=== PATIENT | female | born 1950 | race Caucasian/White ===

== ENCOUNTER 2017-05-04 11:40 | Day surgery (SDC) | payer MEDICARE, OTHER ==
[~2017-05-04] VITALS: Ht 152.4 cm; Wt 65.8 kg
--- NOTE | ~2017-05-04 | OP ---
Record Of Operation [facility] [address] [place]. [address] NAME: FERNANDO KNIGHT : 48 STATUS : [facility]#: [id number] AGE: 66 ADM/REG DATE : 05/04/17 MR#: [id number] REPORT SERV DATE: 05/04/17 DICTATED BY: STEPHANE SHAY DATE: 05/04/17 REPORT STATUS : Draft TRANSCRIBED BY: ELIZABETH DATE: 05/04/17 DATE OF PROCEDURE: 05/04/2017 PROCEDURE: L1 kyphoplasty using fluoroscopic guidance. DIAGNOSES: 1. Osteoporosis. 2. L1 compression fracture. 3. Severe lumbalgia, secondary to the above. PREPROCEDURAL ANTIBIOTICS: None. ANESTHESIA: General. INTERIM HISTORY: Noncontributory. COMPLICATIONS: None. ESTIMATED BLOOD LOSS: Approximately 20 mL. FLUIDS: Through the procedure given by [facility] was approximately 800 mL. CONSENT: Informed consent was given and signed. Informed consent document was obtained. Full description of the procedure was provided including benefits as well as possible complications. OPERATIVE PROCEDURE: The patient was brought to the operating room and placed under general anesthesia with endotracheal intubation and then rolled onto chest rolls in a comfortable prone position. All pressure points were padded. The operative field was prepped with alcohol, followed by ChloraPrep and Ioban and draped in sterile fashion. Local anesthesia both superficial and deep was provided by local infiltration of a total of approximately 15 mL of 50:50 mixture of 0.5% Marcaine with epinephrine and 1% lidocaine. Anesthesia to the level of the pedicles was given using a 22-gauge 3.5 inch spinal needle, and this also allowed for correct corroboration of the L1 level between AP and lateral fluoroscopy. Two C-arms were used throughout the procedure in biplanar fashion, and radiographs were made. Attention was focused on the L1 vertebrae. Using a 15 blade scalpel, a small skin rent was made just lateral to the right pedicle under AP view. A size 2 (Express) trocar was then mounted to the right pedicle just past the posterior margin of the vertebral body using multiple radiographic views under AP and lateral projections. The Kyphon biopsy device was then cored under continuous live fluoroscopy until reaching the junction of the anterior one-third and posterior two-thirds of the vertebral body under lateral projection. The biopsy device was near the midline on the AP view. Attention was then turned to the left side at the same level, and the same procedure was repeated. Two Kyphon balloon tamps were then placed through the introducers. The inflatable bone tamps were filled with contrast to a pressure of approximately 200 psi, and radiographs revealed excellent Record Of Operation [address] [place]. [address] NAME: FERNANDO KNIGHT : 48 STATUS : [facility] PAT#: [id number] AGE: 66 ADM/REG DATE : 05/04/17 MR#: [id number] REPORT SERV DATE: 05/04/17 DICTATED BY: STEPHANE SHAY DATE: 05/04/17 REPORT STATUS : Draft TRANSCRIBED BY: ELIZABETH DATE: 05/04/17 intraosseous cavitation on AP and lateral projections. The balloon tamps were then deflated and removed and a total of approximately 6 mL of polymethylmethacrylate (PMMA) was pushed through the introducers after being mixed and given time to harden. The patient tolerated this well, and radiographs revealed excellent intraosseous cement interdigitation without any evidence of extravasation. All needles, introducers, and other percutaneous equipment were removed. The skin nicks were then cleansed, covered, and dressed. The patient tolerated the procedure well. There were no complications. She was taken to the recovery area in good condition and will be provided with postprocedural instructions. She will also be provided with contact information and instructed to call regarding any concerning symptoms or questions. LUIZ/ELIZABETH Stephane Shay M.D. / [id number] CC: Stephane Shay M.D.
[~2017-05-04 11:40] MED LIST: DIL2TAB PO; NEUR600 PO; PAX20 PO; WELL100 PO
[2017-05-04 12:30] LABS: BASOPHILS 0.3 %; BASOPHILS ABSOLUTE 0.02 10/3/uL (0.0-0.16); EOSINOPHILS 2.2 %; EOSINOPHILS ABSOLUTE 0.14 10/3/uL (0.0-0.53); HEMOGLOBIN 12.8 g/dL (12.0-16.0); LYMPHOCYTES 26.3 %; LYMPHOCYTES ABSOLUTE 1.69 10/3/uL (0.67-4.30); MANUAL DIFF NO %; MEAN CORPUS HGB CONC 33.7 g/dL (32.0-36.0); MEAN CORPUSCULAR HEMOGLOB 31.1 pg (26.0-34.0); MEAN CORPUSCULAR VOLUME 92.2 fL (80-100); MEAN PLATELET VOLUME 9.1 fL (9.2-13.0); MONOCYTES 5.4 %; MONOCYTES ABSOLUTE 0.35 10/3/uL (0.21-1.20); NEUTROPHILS 65.8 %; NEUTROPHILS ABSOLUTE 4.23 10/3/uL (2.02-8.40); PLATELET COUNT 271 10/3/uL (150-400); RBC DISTRIBUTION WIDTH 12.7 % (12.0-16.0); RED CELL COUNT 4.12 10/6/uL (4.0-5.6); WHITE BLOOD CELLS 6.4 10/3/uL (4.5-10.5)
[2017-05-04 12:38] LABS: INTERNATIONAL NORMAL RATI 1.1 UNITS (-); PARTIAL THROMBO TIME 29.2 SEC (22.5-37.2); PROTIME (NOT ORD) 13.6 SEC (12.0-14.5)
[2017-05-04 12:42] LABS: BUN (BLOOD UREA NITROGEN) 9 MG/DL (6-23); CALCIUM, SERUM 9.2 MG/DL (8.5-10.4); CHLORIDE, SERUM 104 MMOL/L (96-112); CO2 (CARBON DIOXIDE) 29 MMOL/L (24-34); CREATININE 0.81 MG/DL (0.55-1.02); GFR AFRICAN AMERICAN 87 ML/MIN (>=60); GFR NON AFRICAN AMERICAN 75 ML/MIN (>=60); GLUCOSE, SERUM 83 MG/DL (60-99); POTASSIUM, SERUM 3.9 MMOL/L (3.5-5.3); SODIUM, SERUM 138 MMOL/L (135-148)
== END 2017-05-04 17:38 | disposition home or self-care (01) ==
LOC: SDC 11:40
PROVIDERS: Emergency Medicine Sports Medicine
PROC: 0QU03JZ Supplement Lumbar Vertebra with Synthetic Substitute, Percutaneous Approach (ICD-10-PCS; 2017-05-04)
PROC: 0QS03ZZ Reposition Lumbar Vertebra, Percutaneous Approach (ICD-10-PCS; principal; 2017-05-04 14:30)
DX: M80.88XA Other osteoporosis with current pathological fracture, vertebra(e), initial encounter for fracture (principal); J44.9 Chronic obstructive pulmonary disease, unspecified; F32.9 Major depressive disorder, single episode, unspecified; F41.9 Anxiety disorder, unspecified; K58.9 Irritable bowel syndrome, unspecified; Z88.2 Allergy status to sulfonamides; Z88.8 Allergy status to other drugs, medicaments and biological substances; Z79.899 Other long term (current) drug therapy
CPT/HCPCS: 80048; 85025; 85610; 85730; 88307; 88311; 93005; C1726; J2250; J2370; J2405; J2710; J3010; Q9967